=== PATIENT | female | born 1940 | race Caucasian/White ===

== ENCOUNTER 2023-11-18 05:34 | Emergency (ER) | payer OTHER ==
[~2023-11-18] VITALS: Ht 157.5 cm; Wt 81.0 kg
[2023-11-18 06:20] LABS: Basophils # (auto) 0.1 10 ^3/uL (0-0.2); Basophils % (auto) 0.6 % (0.0-2.0); Eosinophils # (auto) 0.1 10 ^3/uL (0-0.8); Eosinophils % (auto) 0.9 % (0.0-7.0); Hematocrit 44.4 % (36.0-46.0); Hemoglobin 14.7 g/dL (12.2-16.2); Lymphocytes # (auto) 2.4 10 ^3/uL (0.4-5.4); Lymphocytes % (auto) 27.1 % (10.0-50.0); Mean Corpuscular Hemoglobin 27.7 pg (28.0-32.0); Mean Corpuscular Volume 83.9 fL (80.0-100.0); Monocytes # (auto) 0.5 10 ^3/uL (0-1.3); Monocytes % (auto) 5.8 % (0.0-12.0); Neutrophils # (auto) 5.7 10 ^3/uL (1.6-8.6); Neutrophils % (auto) 65.6 % (37.0-80.0); Nucleated Red Blood Cells % 0.2 %; Red Cell Distribution Width 15.5 % (11.8-14.3); White Blood Cell 8.7 10^3/uL (4.4-10.8)
[2023-11-18 06:29] VITALS: PULSE 63; RESP 16; O2SAT 94
[2023-11-18 06:42] LABS: Alanine Aminotransferase 11 U/L (7-40); Albumin 4.6 g/dL (3.2-4.8); Alkaline Phosphatase 108 U/L (46-116); Anion Gap 10 (5-15); Aspartate Aminotransferase 19 U/L (13-40); BUN/Creatinine Ratio 14.7 (10.0-20.0); Bilirubin, Total 0.5 mg/dL (0.2-1.0); Blood Urea Nitrogen 14 mg/dL (9-23); Calcium 10.3 mg/dL (8.7-10.4); Carbon Dioxide 23 mmol/L (20-30); Chloride 109 mmol/L (98-107); Glucose 121 mg/dL (74-106); Potassium 4.5 mmol/L (3.5-5.1); Sodium 142 mmol/L (136-145)
[2023-11-18] MEDS: ASPirin 81 mg TAB PO ONE (06:57)
[2023-11-18] MEDS: MORPHINE SULFATE 4 MG/ML SYR/VIAL IV ONE (07:05)
[2023-11-18] MEDS: ONDANSETRON HCL 4 MG/2 ML VIAL IV ONE (07:07)
[2023-11-18 07:18] LABS: Urine Bacteria FEW /hpf (None Seen); Urine Blood Negative /uL (Negative); Urine Clarity Clear (Clear); Urine Color Light-Yellow (Yellow); Urine Protein, UAD Negative (Negative); Urine Specific Gravity 1.019 (1.001-1.035); Urine Urobilinogen Normal (Negative); Urine WBC 4 /hpf (0 - 5); Urine pH 6.5 (5.0-9.0)
[2023-11-18 07:37] VITALS: PULSE 55; RESP 11; O2SAT 95
[2023-11-18] MEDS: cefTRIAXone 1GM/50ML D5W 50 ML IV ONE (08:42)
[2023-11-18] MEDS ORDERED: LOVA40TA72 PO (08:52)
[2023-11-18] MEDS ORDERED: [UNRECOGNIZED DRUG - CODE] PO (08:52)
[2023-11-18] MEDS ORDERED: LEVO50TA7 PO (08:52)
[2023-11-18] MEDS ORDERED: AMLO1TAB22 PO (08:52)
[2023-11-18] MEDS: LEVOTHYROXINE SODIUM 50 MCG TAB PO ONE (09:56)
[2023-11-18 10:54] VITALS: BP 147/71; PULSE 64; RESP 14; TEMP 97.6; O2SAT 94
== END 2023-11-18 11:06 | disposition short-term general hospital (02) ==
LOC: EDBD 05:34 → ER 05:34
DX: R07.89 Other chest pain (principal); I10 Essential (primary) hypertension; Z85.9 Personal history of malignant neoplasm, unspecified; Z87.442 Personal history of urinary calculi; Z98.890 Other specified postprocedural states; Z87.891 Personal history of nicotine dependence; Z88.6 Allergy status to analgesic agent
CPT/HCPCS: 36415; 71045; 80053; 81001; 83880; 84484; 85025; 93005; 96365; 96375; 99285; J0696; J2270; J2405